=== PATIENT | male | born 1980 | race Caucasian/White ===

== ENCOUNTER 2020-09-24 09:48 | Outpatient (REF) | payer OTHER, SELFPAY ==
[2020-09-24 22:43] LABS: Glucose 123 mg/dL (74-106)
[2020-09-24 22:48] LABS: Hemoglobin A1C 5.4 % (<5.7)
== END 2020-09-24 10:08 ==
LOC: NCHCN 09:48
PROVIDERS: Visit Provider Family Medicine
DX: R73.03 Prediabetes (principal)
CPT/HCPCS: 82947; 83036

== ENCOUNTER 2021-04-28 06:15 | Emergency (ER) | payer OTHER, SELFPAY ==
[2021-04-28] VITALS (94 sets, daily range): BP systolic 118–157; BP diastolic 76–116; PULSE 65–98; RESP 4–25; TEMP 36.4–36.7; O2SAT 91–99
--- NOTE | 2021-04-28 06:15 | RT.EKG_ITS ---
APPROVED REPORT Exam: Resting ECG Reason for Exam: CHEST PAIN Patient Location: E HR:84 bpm ECG Measurements Heart Rate 84 AXIS CA 165 P 24 QRSd 106 QRS -32 QT 352 T 32 QTc 416 Conclusion Sinus rhythm...normal P axis, V-rate 60- 99 Left axis deviation...QRS axis (-30,-90) Low voltage, precordial leads...precordial leads <1.0mV Consider anterior infarct...Q >30mS in V2-V5 Physician: no stemi, no significant st elevation or depression. Q wave noted in lead 3.
--- NOTE | 2021-04-28 06:15 | DI.CT_ITS ---
Exam(s) CT THORAX ABDOMEN CTA EXAM: CT THORAX ABDOMEN CTA CLINICAL HISTORY: substernal tearing pain, 4 months post covid. TECHNIQUE: Imaging Protocol: Axial CT angiography was performed with multi-slice acquisition and m ulti-planar and/or 3D reconstructions. CONTRAST MATERIAL: Intravenous: Omnipaque 350 Contrast volume:100 ml Oral: no COMPARISON: No exams were available for comparison FINDINGS: CHEST: Pulmonary Arteries: No evidence of filling defect to suggest pulmonary emboli. Tracheobronchial tree: Patent where visualized. Mediastinum and Maria Alejandra: No dominant adenopathy or fluid collection. Pulmonary parenchyma: No consolidation or dominant measurable mass. No architectural distortion. Pleura: No effusion or pneumothorax. Heart: The heart is not dilated. No coronary artery calcifications are seen. Aorta: Thoracic aorta non-dilated. No evidence of dissection. Bones: Degenerative changes in the lower thoracic spine. ABDOMEN AND PELVIS: Abdomen: Celiac axis/mesenteric arteries: No evidence of occlusion or significant stenosis. Renal Arteries: No evidence of occlusion or significant stenosis. There is a single renal artery per fusing each kidney. Aorta: No evidence of occlusion or significant stenosis. No aneurysm or dissection. Pelvis: Iliac Arteries: No evidence of occlusion or significant stenosis. Common Femoral Arteries: No evidence of occlusion or significant stenosis. ABDOMEN: Liver: Enlarged. Severe fatty infiltration. No measurable mass. Portal, Superior Mesenteric, and Splenic Veins: Unremarkable. Gallbladder and Biliary Tract: No radiodense calculus or dilation. Pancreas: Normal density, no abnormal calcifications or inflammatory process. Spleen: Normal. Adrenals: No masses seen. Kidneys: Defect upper pole right kidney, likely postsurgical.. No radiodense stones or obstructive u ropathy. No masses seen. Bowel: No obstruction or bowel wall thickening. Appendix is unremarkable. Sigmoid diverticulosis. No evidence of diverticulitis. Peritoneal Cavity: No ascites, collection or mesenteric inflammatory response. Lymph Nodes: Within normal limits. Bones: Unremarkable. Soft Tissues: Unremarkable. PELVIS: Bladder: Not fully included on the exam. Symmetric distention, no gross wall thickening. Lymph Nodes: Within normal limits. Bones: Mild degenerative changes L5-S1. IMPRESSION: Normal CT Angiogram of the chest, abdomen and pelvis. Severe fatty infiltration of the liver. Pos tsurgical defect upper pole right kidney. RADIATION DOSE DELIVERED: 1,146.73mGy.cm Total DLP DATA REPOSITORY: All CT scans at this facility are submitted to the National Radiology Data Registry (NRDR) Dose Index Registry (DIR) with the [employer] ([employer]). RADIATION OPTIMIZATION: All CT scans at this facility use at least one of these dose optimization te chniques: automated exposure control; mA and/or kV adjustment per patient size (includes targeted exa ms where dose is matched to clinical indication); or iterative reconstruction.
[2021-04-28 06:42] LABS: Abs Immature Grans 0.02 10^3/uL (0.0-0.06); Absolute Basophil Count 0.02 10^3/uL (0.0-0.2); Absolute Eosinophil Count 0.15 10^3/uL (0.0-0.7); Absolute Lymphocyte Count 1.36 10^3/uL (1.2-3.4); Absolute Monocyte Count 0.63 10^3/uL (0.1-0.8); Absolute Neutrophil Count 4.12 10^3/uL (1.2-6.7); Basophils % 0.3; Eosinophils % 2.4; HCT 44.1 % (40.0-50.0); HGB 15.5 g/dL (13.5-17.5); Immature Grans % 0.3; Lymphocytes % 21.6; MCH 31.4 pg (27.0-33.0); MCHC 35.1 % (32.0-36.0); MCV 89.5 fL (80-95); MPV 10.9 fL (8.0-11.0); Neutrophils % 65.4; Nucleated RBC 0 %; Platelet Count 163 10^3/uL (130-400); RBC 4.93 10^6/uL (4.36-5.78); RDW-SD 39.5 fL
--- NOTE | 2021-04-28 07:11 | ED.GENADUL_ITS ---
Discharge Plan Disposition Patient Disposition: HOME Condition: Improving Discharge Details Clinical Impression: Chest wall pain, Epigastric abdominal pain Primary Care Provider: Abimael Veloz ED Provider: Annabelle Villalobos Home Meds and New Rx's Prescriptions: New sucralfate [Carafate] 1 gram tablet 1 gm PO QACHS Qty: 14 RF: 0 omeprazole 20 mg capsule,delayed release(DR/EC) 20 mg PO DAILY 14 Days Qty: 14 RF: 0 Discharge Instructions Instructions: Epigastric Pain (ED), Chest Wall Pain (ED) Additional Instructions: Drink plenty of fluids and get plenty of rest. Your prescriptions have been sent electronically to your pharmacy. Call the pharmacy to make sure your prescriptions are ready before pickup. Take the prescriptions as directed. Call your primary care doctor's office tomorrow to schedule a follow-up appointment for reevaluation and for rescheduling of your outpatient stress test and for consideration for outpatient pulmonary function testing for your intermittent wheezing. You will receive a call from care management regarding a follow-up appointment with general surgery at the hospital for reevaluation and consideration for upper endoscopy. Return immediately to the emergency department if you develop any worsening or new concerning symptoms. Referrals: Minnie Deluca DO [OSTEOPATHIC DOCTOR] - Discharge Data Discharge Date/Time-TO BE ENTERED AT DEPARTURE: 04/28/21 11:00 Discharge Physician: Annabelle Villalobos Medical Decision Making <Brennan Lopez DO - Last Filed: 04/28/21 07:20> 40-year-old male with a past medical history of right-sided renal cancer and nephrectomy, positive Covid this past December with subsequent chronic mild chest pain, presents today for evaluation of chest pain. Patient states that this morning at approximately 4 AM he was woken up out of sleep with what he describes as a tearing and ripping sensation in the center of his chest described as severe. Short of breath, and had notable pain. Came to the ER for further assessment. He denies any trauma, he denies any long trips surgeries or procedures. He denies ever having symptoms like this before. He denies vomiting or diarrhea. Pain is made worse with palpation of the chest region, and movement and breathing. No other complaints at this time. Exam demonstrates notable reproducible tenderness over the xiphoid process, as well as in the epigastric region. However pulses are equal, sensation is normal throughout. Vital signs aside from mild tachycardia are relatively stable. The patient's clinical history and symptoms are certainly concerning for etiologies like a dissection or pulmonary embolism. He describes the pain as severe, and is in notable extremitas. However, his exam appears to be less consistent for this. Dorsalis pedis and posterior tibial pulses are also intact and normal bilaterally. We will evaluate for cardiac etiology, get a CT scan of the chest and abdomen, monitor closely and reassess. We will treat his pain. <Annabelle Villalobos DO - Last Filed: 04/29/21 08:11> [id number] --please see Dr. Lopez's note for initial presentation, exam and plan. Case endorsed to follow-up on imaging with plan for repeat troponin and EKG. Patient complaining of lower chest and epigastric pain at the time of my assessment. His vitals are within normal limits. His lungs are clear. He has tenderness to his lower sternum, epigastrium and right upper quadrant. Labs reviewed and unremarkable. Minimal elevation of ALT, but otherwise unremarkable AST, alk phos and lipase. First troponin negative. Differential diagnosis includes costochondritis, PUD, biliary colic, gastritis, etc. History and presentation does not appear consistent with PE or dissection, but awaiting CTA results. Patient does endorse that he has had similar type chest pain since his diagnosis of Covid in December. He states this is his fifth episode but more intense than usual. It is also possible that this is a long-term symptom of Covid. We will give IV Pepcid, p.o. Carafate and GI cocktail reassess. His CTA chest and abdomen is negative. 1040 --repeat troponin negative. Repeat EKG unchanged. Patient reassessed and he feels much better and feels good to go home. Patient states he had a stress test scheduled prior to developing Covid in December but this was canceled. He is advised to call his PCP tomorrow for reevaluation in the next week and to reschedule his stress test. He also states he has seen his PCP for occasional wheezing since Covid for which he uses what he thinks is an albuterol inhaler once daily. He is advised to also discuss with his PCP whether he needs to obtain a outpatient pulmonary function test. Patient also placed on care management list to help arrange for follow-up appointment with surgery for reevaluation and for potential upper endoscopy. Discussed with patient that his symptoms could potentially be due to long-term symptoms from Covid but important to rule out other concerning causes. Usual and customary return precautions given prior to discharge. Medical Records Medical records reviewed: Yes I reviewed the patient's medical records. Imaging Data Radiologic Study: Radiologist's impression: CTA Chest With Contrast Exam date and time: 04/28/2021 6:28 AM Age: 40 years old Clinical indication: Patient HX: HX renal CA, covid 4 months age, chest pain since TECHNIQUE: Imaging protocol: Computed tomographic angiography of the chest with contrast. 3D rendering (Not supervised by radiologist): MIP and/or 3D reconstructed images were created by the technologist. Contrast material: OMNIPAQUE 350; Contrast volume: 100 ml; Contrast route: IV; COMPARISON: No relevant prior studies available. FINDINGS: Pulmonary arteries: Normal. No pulmonary emboli. Aorta: Unremarkable. No aortic aneurysm. No aortic dissection. Lungs: Unremarkable. No consolidation. No masses. Pleural spaces: Unremarkable. No pneumothorax. No pleural effusion. Heart: Unremarkable. No cardiomegaly. No pericardial effusion. Lymph nodes: Unremarkable. No enlarged lymph nodes. Bones/joints: Unremarkable. No acute fracture. Soft tissues: Unremarkable. IMPRESSION: No acute findings. CT Angiography Abdomen With Contrast Exam date and time: 04/28/2021 6:28 AM Age: 40 years old Clinical indication: Patient HX: HX renal CA, covid 4 months age, chest pain since TECHNIQUE: Imaging protocol: Computed tomographic angiography images of the abdomen with intravenous contrast material. 3D rendering (Not supervised by radiologist): MIP and/or 3D reconstructed images were created by the technologist. Contrast material: OMNIPAQUE 350; Contrast volume: 100 ml; Contrast route: IV; COMPARISON: No relevant prior studies available. FINDINGS: Aorta: No aortic aneurysm. No aortic dissection. Celiac trunk and mesenteric arteries: No occlusion or significant stenosis. Renal arteries: No occlusion or significant stenosis. Liver: Normal. No mass. Gallbladder and bile ducts: Normal. No calcified stones. No ductal dilation. Pancreas: Normal. No ductal dilation. Spleen: Normal. No splenomegaly. Adrenals: Normal. No mass. Kidneys and ureters: Normal. No hydronephrosis. Stomach and bowel: Unremarkable. No obstruction. No mucosal thickening. Lymph nodes: Unremarkable. No enlarged lymph nodes. Intraperitoneal space: Unremarkable. No free air. No significant fluid collection. Bones/joints: Unremarkable. No acute fracture. No dislocation. Soft tissues: Unremarkable. IMPRESSION: Unremarkable CTA abdomen. Lab Data Lab results reviewed: Yes I reviewed the patient's lab results. Labs: Laboratory Tests Range/Units 04/28/21 04/28/21 04/28/21 06:30 06:30 08:25 WBC (4.4-10.8) 10^3/uL 6.30 RBC (4.36-5.78) 10^6/uL 4.93 Hgb (13.5-17.5) g/dL 15.5 Hct (40.0-50.0) % 44.1 MCV (80-95) fL 89.5 MCH (27.0-33.0) pg 31.4 MCHC (32.0-36.0) % 35.1 RDW (11.8-14.1) % 12.0 Plt Count (130-400) 10^3/uL 163 MPV (8.0-11.0) fL 10.9 Immature Gran % 0.3 Neutrophils % 65.4 Lymphocytes % 21.6 Monocytes % 10.0 Eosinophils % 2.4 Basophils % 0.3 Nucleated RBC % % 0 Absolute Neutrophils (1.2-6.7) 10^3/uL 4.12 Absolute Lymphocytes (1.2-3.4) 10^3/uL 1.36 Absolute Monocytes (0.1-0.8) 10^3/uL 0.63 Absolute Eosinophils (0.0-0.7) 10^3/uL 0.15 Absolute Basophils (0.0-0.2) 10^3/uL 0.02 Sodium (136-145) mmol/L 137 Potassium (3.5-5.1) mmol/L 4.4 Chloride (98-107) mmol/L 103 Carbon Dioxide (21.0-32.0) mmol/L 27.1 Anion Gap (3-11) mmol/L 6.9 BUN (7-18) mg/dL 14 Creatinine (0.70-1.30) mg/dL 1.0 Estimated GFR/1.73 m2 (mL/min/1.73m2) >= 60.00 Glucose (74-106) mg/dL 168 H Calcium (8.5-10.1) mg/dL 9.1 Total Bilirubin (0.2-1.0) mg/dL 0.6 AST (15-37) U/L 29 ALT (16-63) U/L 78 H Alkaline Phosphatase (46-116) U/L 109 Troponin I (<0.06) ng/mL < 0.05 NT-Pro-B Natriuret Pep (<300) pg/mL 5 Total Protein (6.4-8.2) g/dL 7.8 Albumin (3.4-5.0) g/dL 4.1 Lipase (73-393) U/L 120 Urine Color (Yellow) Yellow Urine Clarity (Clear) Clear Urine pH (5-8) 5.5 Ur Specific [place] (1.005-1.025) 1.015 Urine Protein (Negative) mg/dL Negative Urine Ketones (Negative) mg/dL Negative Urine Blood (Negative) Negative Urine Nitrite (Negative) Negative Urine Bilirubin (Negative) Negative Urine Urobilinogen (Up TO 0.2) EU/dL 0.2 Ur Leukocyte Esterase (Negative) Negative Urine Glucose (Negative) mg/dL Negative Range/Units 04/28/21 09:30 WBC (4.4-10.8) 10^3/uL RBC (4.36-5.78) 10^6/uL Hgb (13.5-17.5) g/dL Hct (40.0-50.0) % MCV (80-95) fL MCH (27.0-33.0) pg MCHC (32.0-36.0) % RDW (11.8-14.1) % Plt Count (130-400) 10^3/uL MPV (8.0-11.0) fL Immature Gran % Neutrophils % Lymphocytes % Monocytes % Eosinophils % Basophils % Nucleated RBC % % Absolute Neutrophils (1.2-6.7) 10^3/uL Absolute Lymphocytes (1.2-3.4) 10^3/uL Absolute Monocytes (0.1-0.8) 10^3/uL Absolute Eosinophils (0.0-0.7) 10^3/uL Absolute Basophils (0.0-0.2) 10^3/uL Sodium (136-145) mmol/L Potassium (3.5-5.1) mmol/L Chloride (98-107) mmol/L Carbon Dioxide (21.0-32.0) mmol/L Anion Gap (3-11) mmol/L BUN (7-18) mg/dL Creatinine (0.70-1.30) mg/dL Estimated GFR/1.73 m2 (mL/min/1.73m2) Glucose (74-106) mg/dL Calcium (8.5-10.1) mg/dL Total Bilirubin (0.2-1.0) mg/dL AST (15-37) U/L ALT (16-63) U/L Alkaline Phosphatase (46-116) U/L Troponin I (<0.06) ng/mL < 0.05 NT-Pro-B Natriuret Pep (<300) pg/mL Total Protein (6.4-8.2) g/dL Albumin (3.4-5.0) g/dL Lipase (73-393) U/L Urine Color (Yellow) Urine Clarity (Clear) Urine pH (5-8) Ur Specific [place] (1.005-1.025) Urine Protein (Negative) mg/dL Urine Ketones (Negative) mg/dL Urine Blood (Negative) Urine Nitrite (Negative) Urine Bilirubin (Negative) Urine Urobilinogen (Up TO 0.2) EU/dL Ur Leukocyte Esterase (Negative) Urine Glucose (Negative) mg/dL ECG Data Attestation: I personally reviewed and interpreted this ECG (s) as follows: Interpretation: #1 -- Rate of 84, sinus, Q waves in anterior and inferior leads. No STEMI. #2 -- Rate of 80, sinus, no STEMI, no change from previous. HPI <Brennan Lopez DO - Last Filed: 04/28/21 07:20> General Date/Time Provider Initiated Documentation: 04/28/21 06:26 . HPI Narrative: 40-year-old male with a past medical history of right-sided renal cancer and nephrectomy, positive Covid this past December with subsequent chronic mild chest pain, presents today for evaluation of chest pain. Patient states that this morning at approximately 4 AM he was woken up out of sleep with what he describes as a tearing and ripping sensation in the center of his chest described as severe. Short of breath, and had notable pain. Came to the ER for further assessment. He denies any trauma, he denies any long trips surgeries or procedures. He denies ever having symptoms like this before. He denies vomiting or diarrhea. Pain is made worse with palpation of the chest region, and movement and breathing. No other complaints at this time. Related Data Home Medications Medication Instructions Recorded Confirmed omeprazole 20 mg PO DAILY 14 Days #14 cap 04/28/21 sucralfate [Carafate] 1 gm PO QACHS #14 tab 04/28/21 Previous Rx's Medication Instructions Recorded omeprazole 20 mg PO DAILY 14 Days #14 cap 04/28/21 sucralfate [Carafate] 1 gm PO QACHS #14 tab 04/28/21 Allergies Allergy/AdvReac Type Severity Reaction Status Date / Time No Known Allergies Allergy Unverified 04/28/21 06:44 General Stated Complaint: Chest Pain ELDER: 2 Review of Systems <Brennan Lopez DO - Last Filed: 04/28/21 07:20> All systems reviewed & are unremarkable except as noted in HPI and below PFSH <Brennan Lopez DO - Last Filed: 04/28/21 07:20> Medical History (Updated 04/28/21 @ 10:44 by Annabelle Villalobos DO) COVID December 2020 Kidney carcinoma Surgical History (Updated 04/28/21 @ 09:13 by Annabelle Villalobos DO) History of partial nephrectomy Social History Smoking/Tobacco Use Status: Never Smoking risk assessment performed?: Yes Alcohol Intake: current Alcohol Intake frequency: a few times a week Alcohol type: beer and wine Drug use: Never Substance use type: does not use Do you feel safe at home: Yes Do you feel safe in your relationship?: Yes Exam <Brennan Lopez DO - Last Filed: 04/28/21 07:20> Narrative Exam Narrative: 1.Const: Well-nourished, Well-developed, appearing stated age 2.Eyes: PERRL, no conjunctival injection, and symmetrical lids. 3.ENT: Atraumatic external nose and ears. Moist MM. Neck: Symmetric, trachea midline, No thyromegaly. 4.CVS: +S1/S2, No murmurs or gallops. Peripheral pulses 2+ and equal in all extremities. Brisk capillary refill in all extremities. Radial pulses symmetric and palpable bilaterally. +2 bilaterally. 5.RESP: Unlabored respiratory effort. Clear to auscultation bilaterally. No wheezes rales or rhonchi 6.GI: Soft, Nontender/Nondistended, No hepatosplenomegaly. No guarding or rebound. However the patient does have notable tenderness in the epigastric region at the area of the xiphoid process. The patient states that this area is both tender but also beneath it in the nonpalpable component is also tender. 7.MSK: Normocephalic/Atraumatic, Extremities w/o deformity or ttp No cyanosis or clubbing, Normal movement of all extremities 8.Skin: Warm, Dry. No rashes or lesions. 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 Sensation grossly intact, no focal neurologic deficits. 10.Psych: (AAO) x3. Appropriate mood and affect Course <Brennan Lopez DO - Last Filed: 04/28/21 07:20> Vital Signs Vital signs: Vital Signs Respiratory Rate 4 L 04/28/21 06:25 Pulse Oximetry 99 04/28/21 06:25 Temperature 36.7 C 04/28/21 06:30 Temperature Source Skin 04/28/21 06:30 Pulse 73 04/28/21 07:01 Pulse 88 04/28/21 07:01 Respiratory Rate 20 04/28/21 07:01 Respiratory Effort 04/28/21 06:45 Blood Pressure 142/80 H 04/28/21 07:01 Blood Pressure Mean 93 04/28/21 07:01 Pulse Oximetry 96 04/28/21 07:01 Pain Level 10 04/28/21 06:40 Lab/Test Results Lab/Test Results: Laboratory Tests Range/Units 04/28/21 06:30 WBC (4.4-10.8) 10^3/uL 6.30 RBC (4.36-5.78) 10^6/uL 4.93 Hgb (13.5-17.5) g/dL 15.5 Hct (40.0-50.0) % 44.1 MCV (80-95) fL 89.5 MCH (27.0-33.0) pg 31.4 MCHC (32.0-36.0) % 35.1 RDW (11.8-14.1) % 12.0 Plt Count (130-400) 10^3/uL 163 MPV (8.0-11.0) fL 10.9 Immature Gran % 0.3 Neutrophils % 65.4 Lymphocytes % 21.6 Monocytes % 10.0 Eosinophils % 2.4 Basophils % 0.3 Nucleated RBC % % 0 Absolute Neutrophils (1.2-6.7) 10^3/uL 4.12 Absolute Lymphocytes (1.2-3.4) 10^3/uL 1.36 Absolute Monocytes (0.1-0.8) 10^3/uL 0.63 Absolute Eosinophils (0.0-0.7) 10^3/uL 0.15 Absolute Basophils (0.0-0.2) 10^3/uL 0.02 Sign Out <Brennan Lopez DO - Last Filed: 04/28/21 07:20> Sign Out Data: Sign Out Comment: Chest pain, follow-up on CT imaging and labs. Last updated by Brennan Lopez DO at 04/28/21 07:21
[2021-04-28 07:14] LABS: ALT 78 U/L (16-63); AST 29 U/L (15-37); Albumin 4.1 g/dL (3.4-5.0); Alkaline Phosphatase 109 U/L (46-116); Anion Gap 6.9 mmol/L (3-11); BUN 14 mg/dL (7-18); Bilirubin, Total 0.6 mg/dL (0.2-1.0); CO2 27.1 mmol/L (21.0-32.0); Calcium 9.1 mg/dL (8.5-10.1); Chloride 103 mmol/L (98-107); Glucose 168 mg/dL (74-106); Lipase 120 U/L (73-393); NT-proBNP 5 pg/mL (<300); Potassium 4.4 mmol/L (3.5-5.1); Sodium 137 mmol/L (136-145); Total Protein 7.8 g/dL (6.4-8.2); Troponin I < 0.05 ng/mL (<0.06)
[2021-04-28] MEDS: Omnipaque 350 MG/ML 100 ML BTL IJ (07:45)
[2021-04-28] MEDS: Normal Saline - Diluent 50 ML VIAL IV (07:45)
[2021-04-28] MEDS: Normal Saline 1,000 ML 1000 ML IV (08:00)
[2021-04-28] MEDS: FAMOTIDINE 20 MG/50 ML BAG 200 MG IVPB (08:17)
[2021-04-28] MEDS: Sucralfate 1 GM TAB PO (08:19)
--- NOTE | 2021-04-28 08:20 | DI.VRAD_ITS ---
PROCEDURE INFORMATION: Exam: CTA Chest With Contrast Exam date and time: 04/28/2021 6:28 AM Age: 40 years old Clinical indication: Patient HX: HX renal CA, covid 4 months age, chest pain since TECHNIQUE: Imaging protocol: Computed tomographic angiography of the chest with contrast. 3D rendering (Not supervised by radiologist): MIP and/or 3D reconstructed images were created by the technologist. Contrast material: OMNIPAQUE 350; Contrast volume: 100 ml; Contrast route: IV; COMPARISON: No relevant prior studies available. FINDINGS: Pulmonary arteries: Normal. No pulmonary emboli. Aorta: Unremarkable. No aortic aneurysm. No aortic dissection. Lungs: Unremarkable. No consolidation. No masses. Pleural spaces: Unremarkable. No pneumothorax. No pleural effusion. Heart: Unremarkable. No cardiomegaly. No pericardial effusion. Lymph nodes: Unremarkable. No enlarged lymph nodes. Bones/joints: Unremarkable. No acute fracture. Soft tissues: Unremarkable. IMPRESSION: No acute findings. PROCEDURE INFORMATION: Exam: CT Angiography Abdomen With Contrast Exam date and time: 04/28/2021 6:28 AM Age: 40 years old Clinical indication: Patient HX: HX renal CA, covid 4 months age, chest pain since TECHNIQUE: Imaging protocol: Computed tomographic angiography images of the abdomen with intravenous contrast material. 3D rendering (Not supervised by radiologist): MIP and/or 3D reconstructed images were created by the technologist. Contrast material: OMNIPAQUE 350; Contrast volume: 100 ml; Contrast route: IV; COMPARISON: No relevant prior studies available. FINDINGS: Aorta: No aortic aneurysm. No aortic dissection. Celiac trunk and mesenteric arteries: No occlusion or significant stenosis. Renal arteries: No occlusion or significant stenosis. Liver: Normal. No mass. Gallbladder and bile ducts: Normal. No calcified stones. No ductal dilation. Pancreas: Normal. No ductal dilation. Spleen: Normal. No splenomegaly. Adrenals: Normal. No mass. Kidneys and ureters: Normal. No hydronephrosis. Stomach and bowel: Unremarkable. No obstruction. No mucosal thickening. Lymph nodes: Unremarkable. No enlarged lymph nodes. Intraperitoneal space: Unremarkable. No free air. No significant fluid collection. Bones/joints: Unremarkable. No acute fracture. No dislocation. Soft tissues: Unremarkable. IMPRESSION: Unremarkable CTA abdomen. Dictated and Authenticated by: Krunal Golden MD. Ordering:JNOH Amin MD
[2021-04-28 08:50] LABS: Bilirubin Negative (Negative); Blood Negative (Negative); Clarity Clear (Clear); Glucose Negative (Negative); Ketones Negative (Negative); Leukocyte Esterase Negative (Negative); Nitrite Negative (Negative); Specific Gravity 1.015 (1.005-1.025); Urobilinogen 0.2 EU/dL (Up TO 0.2); pH 5.5 (5-8)
--- NOTE | 2021-04-28 09:00 | RT.EKG_ITS ---
APPROVED REPORT Exam: Resting ECG Reason for Exam: chest pain Patient Location: E HR:80 bpm ECG Measurements Heart Rate 80 AXIS IL 175 P 29 QRSd 100 QRS -31 QT 347 T 25 QTc 400 Conclusion Sinus rhythm...normal P axis, V-rate 60- 99 Left axis deviation...QRS axis (-30,-90) Anterior infarct, old...Q >40mS, abnormal ST-T, V2-V5. No STEMI. No change from previous. I have reviewed and interpreted ECG and agree with software generated interpretation.
[2021-04-28 10:13] LABS: Troponin I < 0.05 ng/mL (<0.06)
--- NOTE | 2021-04-28 10:51 | NUR.NOTE ---
Nursing Note: Referral [facility] for follow up in 1 to 2 weeks for epigastric pain, possibly needing EGD. Angeles Eisenberg
== END 2021-04-28 11:00 | disposition home or self-care (01) ==
PROVIDERS: Student in an Organized Health Care Education/Training Program; Emergency Provider Physician Assistant; PCP Family Medicine
DX: R07.81 Pleurodynia (principal); R10.13 Epigastric pain; Z86.16 Personal history of COVID-19
CPT/HCPCS: 36415; 71275; 74175; 80053; 83690; 93005; 96361; 96365; 96375; 99285; 81003; 83880; 84484; 85025; 93010; J3490

== ENCOUNTER 2022-09-22 22:42 | Outpatient (REF) | payer SELFPAY ==
[2022-09-23 01:43] LABS: HGB 15.9 g/dL (13.5-17.5); MCH 30.9 pg (27.0-33.0); MCHC 35.3 % (32.0-36.0); MCV 88 fL (80-95); MPV 12.2 fL (8.0-11.0); Platelet Count 176 10^3/uL (130-400); RBC 5.14 10^6/uL (4.36-5.78); RDW 11.8 % (11.8-14.1); RDW-SD 37.6 fL; WBC 6.26 10^3/uL (4.4-10.8)
[2022-09-23 01:56] LABS: ALT 121 U/L (16-63); AST 51 U/L (15-37); Albumin 4.5 g/dL (3.4-5.0); Alkaline Phosphatase 106 U/L (46-116); BUN 10 mg/dL (7-18); Bilirubin, Total 0.8 mg/dL (0.2-1.0); CREATININE 0.9 mg/dL (0.70-1.30); Calcium 9.7 mg/dL (8.5-10.1); Chloride 98 mmol/L (98-107); Estimated GFR 110.04 (mL/min/1.73m2); Glucose 205 mg/dL (74-106); Potassium 3.9 mmol/L (3.5-5.1); Sodium 134 mmol/L (136-145); Total Protein 8.3 g/dL (6.4-8.2)
[2022-09-23 02:11] LABS: Hemoglobin A1C 7.8 % (<5.7)
== END 2022-09-22 22:43 | disposition home or self-care (01) ==
LOC: NCHCN 22:42
PROVIDERS: PCP Family Medicine; Visit Provider Family Medicine
DX: K70.0 Alcoholic fatty liver (principal); R73.03 Prediabetes; C64.1 Malignant neoplasm of right kidney, except renal pelvis
CPT/HCPCS: 80053; 85027; 83036

== ENCOUNTER 2022-10-29 14:30 | Outpatient (REF) | payer SELFPAY ==
--- OUTSIDE RECORDS SUMMARY | 2022-10-29 14:32 | XMS_ITS | CCD ---
:1980 Author Care Team Providers Name Role Phone CLARK VEGA MD Attending Physician Unavailable CLARK VEGA MD Er Physician 1 Unavailable Vital Signs Unknown or Not Available. Allergies Allergy Code Allergy Type Reaction Status No Known Allergies 0 No known allergies Act cherelle Procedures Unknown or Not Available. History of Immunizations Unknown or Not Available. Problems Unknown or Not Available. Results COMPREHENSIVE METABOLIC PANEL (CMP) - Co llect Date/Time: 07/09/2021 09:11 Test Name Code Test Result Test Units Test Ref Range GLUCOSE 2345-7 124 mg/dL L=70 H=116 BUN 3094-0 13 mg/dL L=6 H=25 CREATININE 2160-0 0.95 mg/dL L=0.67 H=1.17 SODIUM SERUM 2951-2 139 mmol/L L=136 H=145 POTASSIUM SERUM 2823-3 4.4 mmol/L L=3.4 H=5.2 CHLORIDE SERUM 2075-0 103 mmol/L L=96 H=110 CARBON DIOXIDE (CO2) 2028-9 29 mmol/L L=22 H= 34 ANION GAP 96186-7 6.7 mmol/L CALCIUM SERUM 47735-3 9.4 mg/dL L=8.2 H=10.2 BILIRUBIN TOTAL 1975-2 0.8 mg/dL L=0.0 H=1.3 ALK. PHOS. 6768-6 92 U/L L=46 H=116 SGOT (AST) 1920-8 53 U/L L=15 H=37 SGPT (ALT) 1742-6 94 U/L L=12 H=78 TOTAL PROTEIN 2885-2 8.3 gm/dL L=6.0 H=8.0 ALBUMIN 1751-7 4.5 gm/dL L=3.4 H=5.0 AGE 40 years eGFR (non-Afr.Amer.) 23076-2 88 mL/min eGFR (Afr-[place]) 13063-5 106 mL/min LIPASE - Collect Date/Time: 07/09/2021 0 9:11 Test Name Code Test Result Test Units Test Ref Range LIPASE 117 U/L L=73 H=393 CBC W/ DIFFERENTIAL - Collect Date/Time: 07/09/2021 09:11 Test Name Code Test Result Test Units Test Ref Range WBC 6690-2 6.16 th/cmm L=5.00 H=10.00 NEUT % 66.9 % L=40.0 H=80.0 LYMPH % 21.3 % L=10.0 H=50.0 MONO % 90358-8 9.6 % L=2.0 H=12.0 EOS % 1.5 % L=0.0 H=8.0 BASO % 0.5 % L=0.0 H=3.0 IG % 2514-8 0.2 % L=0.0 H=1.1 NRBC % 43615-9 0.0 % L=0.0 H=0.0 NEUT abs count 751-8 4.1 th/cmm L=1.6 H=8.4 LYMPH abs count 731-0 1.3 th/cmm L=1.5 H=4.0 MONO abs count 742-7 0.6 th/cmm L=0.2 H=1.0 EOS abs count 711-2 0.1 th/cmm L=0.0 H=0.5 BASO abs count 704-7 0.0 th/cmm L=0.0 H=0.2 IG abs count 64930-0 0.0 th/cmm L=0.0 H=0.1 NRBC abs count 50687-6 0.0 mil/cmm L=0.0 H=0.0 RBC 789-8 4.95 mil/cmm L=4.30 H=6.20 HEMOGLOBIN 718-7 15.6 gm/dL L=13.0 H=17.0 HEMATOCRIT 4544-3 44 % L=45 H=52 MCV 787-2 89 fL L=82 H=92 MCH 785-6 31.5 pg L=27.0 H=31.0 MCHC 786-4 35.6 % L=32.0 H=36.0 RDW-SD 788-0 38.7 fL L=39.0 H=49.0 PLATELET COUNT 777-3 180 th/cmm L=150 H=450 Active Medications Medication Code Dose Units Frequency Route Modification Start Date/Time NO KNOWN 0 1 DAILY ORAL 11/18/2018 11:1 6 MEDICATIONS Prescription Detail TAKE 1 ORAL DAILY Medications Administered During Visit Unknown or Not Available. Encounters Encounter Diagnosis Diagnosis Code Start Date Calculus of bile duct without cholangitis or [id number] 07/09/2021 cholecystitis without obstruction Social History Smoking Status Code Start Date End Date Never smoker [id number] Patient Decision Aids Unknown or Not Available. Discharge Instructions You were admitted to [facility] on 07/09/2021 09:01 with a principal diagnosis of Calculus of bile duct witho ut cholangitis or cholecystitis without obstruction You had the following tests done: CBC W / DIFFERENTIAL COMPREHENSIVE METABOLIC PANEL (CMP) LIPASE You were discharged from [facility] on 07/09/2021 10:58 Should you have any questions prior to d ischarge, please contact a member of your healthcare team. If you have left the spital and have any questions, please contact your primary care physician. Chief Complaint and Reason For Visit Chief Complaint Date of Onset CHEST PAIN Function Status Unknown or Not Available. Plan of Care Unknown or Not Available. Referral/Transition of Care Unknown or Not Available.
--- OUTSIDE RECORDS SUMMARY | 2022-10-29 14:32 | XMS_ITS | CCD ---
:1980 Author Care Team Providers Name Role Phone AVRIL JOLLY MD Attending Physician Unavailable Vital Signs Unknown or Not Available. Allergies Allergy Code Allergy Type Reaction Status No Known Allergies 0 No known allergies Act cherelle Procedures Unknown or Not Available. History of Immunizations Unknown or Not Available. Problems Unknown or Not Available. Results Unknown or Not Available. Active Medications Medication Code Dose Units Frequency Route Modification Start Date/Time NO KNOWN 0 1 DAILY ORAL 11/18/2018 11:1 6 MEDICATIONS Prescription Detail TAKE 1 ORAL DAILY Medications Administered During Visit Unknown or Not Available. Encounters Encounter Diagnosis Diagnosis Code Start Date Epigastric pain R1013 07/15/2021 Social History Smoking Status Code Start Date End Date Never smoker [id number] Patient Decision Aids Unknown or Not Available. Discharge Instructions You were admitted to [facility] 01 on 07/15/2021 09:50 with a principal diagnosis of Epigastric pain You were discharged from [facility] on 07/15/2021 09:50 Should you have any questions prior to d ischarge, please contact a member of your healthcare team. If you have left the ho spital and have any questions, please contact your primary care physician. Chief Complaint and Reason For Visit Unknown or Not Available. Function Status Unknown or Not Available. Plan of Care Unknown or Not Available. Referral/Transition of Care Unknown or Not Available.
[2022-10-29 16:49] LABS: Hemoglobin A1C 8.7 % (<5.7)
== END 2022-10-29 14:31 | disposition home or self-care (01) ==
LOC: NCHCN 14:30
PROVIDERS: PCP Family Medicine; Visit Provider Family Medicine
DX: E11.65 Type 2 diabetes mellitus with hyperglycemia (principal)
CPT/HCPCS: 82947; 83036

== ENCOUNTER 2023-02-04 00:32 | Outpatient (CLI) | payer BC, SELFPAY ==
--- NOTE | 2023-02-04 07:51 | DI.RAD_ITS ---
Exam(s) XR CHEST 2V PA LATERAL EXAM: XR CHEST 2V PA LATERAL CLINICAL HISTORY: RENAL CELL CARCINOMA, RT KIDNEY, C64.1 TECHNIQUE: 2D digital imaging was performed. COMPARISON: No exams were available for comparison FINDINGS: Exam is limited by the patient's body habitus and suboptimal inspiration. HEART: Within normal limits. Aorta: Not dilated. PULMONARY VASCULATURE: Normal. LUNGS: Clear. PLEURAL SPACE: No pleural effusion or pneumothorax. BONE:Unremarkable for age. IMPRESSION: No acute abnormality. DATA REPOSITORY: RADIATION DOSE DELIVERED:
== END 2023-02-04 00:52 ==
PROVIDERS: PCP Family Medicine; Visit Provider Family Medicine
DX: C64.1 Malignant neoplasm of right kidney, except renal pelvis (principal)
CPT/HCPCS: 71046

== ENCOUNTER 2023-04-02 08:29 | Outpatient (CLI) | payer BC, SELFPAY ==
[2023-04-02 09:09] LABS: Hemoglobin A1C 6.3 % (<5.7)
[2023-04-02 09:30] LABS: ALT 78 U/L (16-63); AST 32 U/L (15-37); Alkaline Phosphatase 101 U/L (46-116); Anion Gap 9.2 mmol/L (3-11); BUN 15 mg/dL (7-18); Bilirubin, Total 0.8 mg/dL (0.2-1.0); CO2 24.8 mmol/L (21.0-32.0); CREATININE 0.9 mg/dL (0.70-1.30); Chloride 101 mmol/L (98-107); Estimated GFR 109.36 (mL/min/1.73m2); Glucose 192 mg/dL (74-106); Potassium 4.1 mmol/L (3.5-5.1); Sodium 135 mmol/L (136-145); Total Protein 7.7 g/dL (6.4-8.2)
== END 2023-04-02 08:30 | disposition home or self-care (01) ==
PROVIDERS: PCP Family Medicine; Visit Provider Family Medicine
DX: C64.1 Malignant neoplasm of right kidney, except renal pelvis (principal); E11.65 Type 2 diabetes mellitus with hyperglycemia
CPT/HCPCS: 36415; 80053; 83036

== ENCOUNTER 2023-12-10 11:02 | Outpatient (REF) | payer BC, SELFPAY ==
[2023-12-10 14:44] LABS: Abs Immature Grans 0.02 10^3/uL (0.0-0.06); Absolute Basophil Count 0.04 10^3/uL (0.0-0.2); Absolute Eosinophil Count 0.07 10^3/uL (0.0-0.7); Absolute Lymphocyte Count 1.34 10^3/uL (1.2-3.4); Absolute Monocyte Count 0.45 10^3/uL (0.1-0.8); Absolute Neutrophil Count 3.54 10^3/uL (1.2-6.7); Basophils % 0.7; Eosinophils % 1.3; HCT 43.6 % (40.0-50.0); HGB 15.9 g/dL (13.5-17.5); Immature Grans % 0.4; Lymphocytes % 24.5; MCHC 36.5 % (32.0-36.0); MCV 85 fL (80-95); MPV 11.5 fL (8.0-11.0); Monocytes % 8.2; Neutrophils % 64.9; Platelet Count 152 10^3/uL (130-400); RBC 5.13 10^6/uL (4.36-5.78); RDW-SD 37.4 fL; WBC 5.46 10^3/uL (4.4-10.8)
[2023-12-10 15:09] LABS: Hemoglobin A1C 8.8 % (<5.7)
[2023-12-10 16:12] LABS: ALT 91 U/L (16-63); AST 34 U/L (15-37); Albumin 4.3 g/dL (3.4-5.0); Alkaline Phosphatase 110 U/L (46-116); Anion Gap 7.8 mmol/L (3-11); BUN 10 mg/dL (7-18); Bilirubin, Total 0.7 mg/dL (0.2-1.0); CO2 28.2 mmol/L (21.0-32.0); CREATININE 0.9 mg/dL (0.70-1.30); Calcium 9.7 mg/dL (8.5-10.1); Calculated LDL 86 mg/dL (<100); Chloride 103 mmol/L (98-107); Cholesterol 153 mg/dL (<200); Estimated GFR 108.68 (mL/min/1.73m2); Glucose 263 mg/dL (74-106); HDL Cholesterol 44 mg/dL (40-60); Potassium 4.6 mmol/L (3.5-5.1); Sodium 139 mmol/L (136-145); Total Protein 8.1 g/dL (6.4-8.2); Triglyceride 117 mg/dL (<150)
== END 2023-12-10 11:03 | disposition home or self-care (01) ==
LOC: NCHCN 11:02
PROVIDERS: PCP Family Medicine; Referring Provider Family Medicine; Visit Provider Family Medicine
DX: E11.9 Type 2 diabetes mellitus without complications (principal); K70.0 Alcoholic fatty liver; Z85.828 Personal history of other malignant neoplasm of skin
CPT/HCPCS: 80053; 80061; 83036; 85025

== ENCOUNTER 2024-06-27 14:03 | Outpatient (REF) | payer BC, SELFPAY ==
[2024-06-27 16:06] LABS: COMMENT (LAB VIEW ONLY) 54.04 mg/dL; Microalb ug/mg Crea 26.3 ug/mg Cr
== END 2024-06-27 14:04 | disposition home or self-care (01) ==
LOC: NCHCN 14:03
PROVIDERS: PCP Family Medicine; Visit Provider Family Medicine
DX: E11.9 Type 2 diabetes mellitus without complications (principal)
CPT/HCPCS: 82043; 82570

== ENCOUNTER 2024-07-18 01:13 | Outpatient (CLI) | payer BC, SELFPAY ==
[2024-07-18] MEDS: Barium Sulfate 2% W/V-Berry Smoothie 450 ML BTL PO ×2 (08:10→08:11)
[2024-07-18 09:09] LABS: CREATININE 0.9 mg/dL (0.70-1.30); Estimated GFR 108.68 (mL/min/1.73m2)
[2024-07-18] MEDS: Normal Saline - Diluent 50 ML VIAL IJ (10:39)
[2024-07-18] MEDS: Omnipaque 350 MG/ML 100 ML BTL 85 ML IJ (10:40)
--- NOTE | 2024-07-18 10:45 | DI.CT_ITS ---
Exam(s) CT ABDOMEN PELVIS WO/W EXAM: CT ABDOMEN PELVIS WO/W CLINICAL HISTORY: HX RENAL CANCER, Z85.528, SURVEILLANCE TECHNIQUE: Imaging Protocol: Axial computed tomography images with coronal and sagittal reformatted images were created and reviewed. CONTRAST MATERIAL: Intravenous: Omnipaque 350 Contrast volume:85 mL Oral: Yes COMPARISON: CT CT THORAX ABDOMEN CTA from 04/28/2021 FINDINGS: ABDOMEN: Lung Bases: There is atelectasis or scarring seen in the left lingula and the right middle lobe. Liver: There is diffuse decreased attenuation of the liver consistent with fatty infiltration. The l iver measures 19 cm long. No measurable mass. Portal, Superior Mesenteric, and Splenic Veins: Unremarkable. Gallbladder and Biliary Tract: There is a 3 cm stone in the gallbladder. No biliary ductal dilatatio n or CT evidence to suggest acute cholecystitis. Pancreas: Normal density, no abnormal calcifications or inflammatory process. Spleen: The spleen is enlarged measuring 15 cm. Adrenals: No masses seen. Kidneys: There again seen postsurgical changes in the superior pole of the right kidney. The kidneys show normal enhancement. No evidence of a renal mass is seen. No radiodense stones or obstructive uropathy. No masses seen. Abdominal Aorta: Abdominal portion non-dilated. Bowel: There is diverticulosis of the colon without evidence of acute diverticulitis. No evidence of bowel obstruction or bowel wall thickening. Appendix is unremarkable. Peritoneal Cavity: No ascites, collection or mesenteric inflammatory response. No free air. Lymph Nodes: Within normal limits. Bones: Within normal limits for the patient's age. There is L5 spondylolysis and grade 1 spondylolis thesis of L5 on S1. Soft Tissues: There is a small fat containing umbilical hernia. PELVIS: Bladder: Symmetric distention, no gross wall thickening. Reproductive Organs: Unremarkable as visualized. Lymph Nodes: Within normal limits. Bones: Within normal limits for the patient's age. IMPRESSION: 1. Postsurgical changes in the superior pole of the right kidney. 2. No evidence of a renal mass. 3. Cholelithiasis. No biliary ductal dilatation. RADIATION DOSE DELIVERED: 1,910.79mGy.cm Total DLP 1,910.79mGy.cm Total DLP DATA REPOSITORY: All CT scans at this facility are submitted to the National Radiology Data Registry (NRDR) Dose Index Registry (DIR) with the [employer] ([employer]). RADIATION OPTIMIZATION: All CT scans at this facility use at least one of these dose optimization te chniques: automated exposure control; mA and/or kV adjustment per patient size (includes targeted exa ms where dose is matched to clinical indication); or iterative reconstruction.
== END 2024-07-18 01:33 ==
LOC: DI 01:13
PROVIDERS: PCP Family Medicine; Visit Provider Family Medicine
DX: Z85.528 Personal history of other malignant neoplasm of kidney (principal); K80.80 Other cholelithiasis without obstruction; Z98.890 Other specified postprocedural states
CPT/HCPCS: 74178; 82565; J3490